=== PATIENT | female | born 1940 | race Caucasian/White ===

== ENCOUNTER 2016-05-16 08:15 | Outpatient (RCR) | payer MEDICARE, OTHER | END 2016-06-13 11:01 | disposition home or self-care (01) | LOC: PT 08:15 | PROVIDERS: ATTEND Family Medicine | DX: M81.0 Age-related osteoporosis without current pathological fracture (principal) | CPT/HCPCS: 97110; 97140; 97163; G8979; G8980; G8981; G8982; G8983 ==

== ENCOUNTER 2016-05-20 13:45 | Outpatient (RCR) | payer MEDICARE, OTHER | END 2016-05-27 16:32 | disposition home or self-care (01) | LOC: PT 13:45 | PROVIDERS: ATTEND Orthopaedic Surgery | DX: G89.29 Other chronic pain (principal); M25.562 Pain in left knee; R26.89 Other abnormalities of gait and mobility | CPT/HCPCS: 97110; 97162; G8978; G8979 ==

== ENCOUNTER 2016-06-28 13:49 | Outpatient (RCR) | payer MEDICARE, OTHER ==
[~2016-06-28 13:49] MED LIST: ASPI-345; ASPI-586 PO; ATEN1TAB3 PO; ATOR20TA PO; CHOL100092 PO; CYCL10TA45 PO; GEMF600T3 PO; HYDR-3702 PO; HYDR-3881 PO; OMEP20CA6 PO; ONDA8TAB9; ONDAN4ODT PO; POTA20TA12 PO; PRM25T PO; SIMV40TA PO; SIMV40TA2; SUCR1TAB29 PO; phenergan; zantac
--- NOTE | 2016-07-01 11:28 | PT/OT/ST INITIAL EVALUATION ---
Department of Health and Human Services Form Approved [facility] Care Financing Administration OMB No. [id number] PLAN OF CARE/ASSESSMENT FOR OUTPATIENT REHABILITATION (Complete for Initial Claims Only) 1. PATIENT'S NAME Leonila Jordan 2. ACC # [id number] [id number] 4. PROVIDER NO. [id number] 5. TYPE: SPT 6. PRIOR HOSPITALIZATION NA 7. PRIMARY DX Dysphagia 8. SECONDARY DX NA 9. ONSET DATE June 22, 2016 10. REFERRAL DATE June 24, 2016 11. SOC. DATE June 28, 2016 12. TIME OF EVAL 13:49 12. REFERRING PHYSICIAN Maira Herndon MD 13. CHARGES/UNITS NA 14. G CODES Currently [id number] 0% impaired Goal [id number] 0% impaired Discharge [id number] 0% impaired 15. PRIOR LEVEL OF FUNCTION; PERTINENT HISTORY (Prior therapy results, reason for referral.) S: Prior to therapy, the patient consented to today's evaluation and treatment. The patient is a 75-year-old female referred to speech therapy by Dr. Herndon to address dysphagia. Personal health rating: The patient rates her overall and general health as good. Mechanism of injury/Primary complaint: The patient does not have a mechanism of injury; however, her primary complaint is on June 22 when she had difficulty with brussel sprouts getting stuck in her esophagus. She states she had to dry heave for about 4 hours and finally was able to work the brussel sprouts out of her esophagus. Prior level of function: Prior to this she has not had any difficulties. Therapy History: She has never received therapy for this. Social history: She lives at home by herself. Aggravating factors: She has no aggravating factors. Diagnostic testing: She has no diagnostic testing. Past medical history: The patient states in 1989, she received an [place] ring, which was to help with acid reflux, which was placed in her esophagus. In 2012, she one episode of difficulty where something got stuck in her esophagus and her esophagus became swollen and Dr. Hartman had to remove part of this to relieve the pressure and she is afraid that this might be what is happening again. She also has a past medical history of rheumatoid arthritis, arthritis, stomach ulcers, osteoporosis, and fibromyalgia. Past surgical history: She has history of hysterectomy, hernias, gallbladder and appendix removal. Current medications: Listed in her chart. No medications should affect any therapy. 16. INITIAL ASSESSMENT/SAFETY PRECAUTIONS/MEDICAL COMPLICATIONS (Level of function at start of care. Be specific, use objective measures, list problems.) O: APPEARANCE AND OBSERVATION: Upon assessment the patient had her own teeth. She states she does not eat meat or beef unless it is ground up. She a cracker with good mastication and no labial or lingual weakness. She swallowed crackers and thin liquids with no outward signs or symptoms of aspiration and no pocketing. She had good labial and laryngeal elevation. The patient complains when she does have the difficulty that it is lower in her esophagus. It does not appear to be any oral or pharyngeal dysphagia, but could be a possible stricture or a difficulty with the [place] ring. Recommend an EGD to check the patient's esophagus for further difficulties, because no outward signs or symptoms of aspiration or pharyngeal residue. TODAY'S TREATMENT: No treatment provided today secondary to evaluation only and recommendation of EGD. 17. INITIAL POC: (Specify procedures, modalities, short and fpc goals) A: CONTRAINDICATIONS, PRECAUTIONS AND OBSTACLES TO DELIVERY OF CARE: None. INFORMED CONSENT: The diagnosis, prognosis, treatment plan, risks and expected outcomes were discussed with the patient and she agreed to today's established plan of care of evaluation only. She wants to have her esophagus checked out. P: Plan to discharge this patient at this time. 18. FREQUENCY One time only evaluation 19. DURATION NA 20. FUNCTIONAL LEVEL (End of claim period) 21. PHYSICIAN SIGNATURE ? ON FILE OR ENTER HERE: 22. DATE: I certify the need for these services furnished under this plan of care and if for partial hospitalization. 23. CERTIFICATION FROM THROUGH FORM [id number]
== END 2016-06-28 15:00 | disposition home or self-care (01) ==
LOC: ST 13:49
PROVIDERS: ATTEND Family Medicine
DX: R13.19 Other dysphagia (principal)
CPT/HCPCS: 92526; G8996; G8997; G8998

== ENCOUNTER → 2016-07-06 | Outpatient (CLI) | payer MEDICARE, OTHER ==
--- NOTE | 2016-07-06 13:06 | Diagnostic Imaging Report ---
EXAM: Ultrasound thyroid. DATE: July 06, 2016. COMPARISON: Thyroid ultrasound June 09, 2014. INDICATION: 75-year-old female, thyroid nodule. FINDINGS: Two-dimensional grayscale and color Doppler images were obtained of the thyroid. Right lobe of the thyroid: There is a heterogeneously hypoechoic nodule in the right lobe of the thyroid with some internal areas of hyperechogenicity which potentially could relate to internal microcalcifications. The nodule measures approximately 3.0 x 2.5 x 2.8 cm in size. There is internal blood flow. On comparison exams, there are more than one right-sided thyroid nodules previously measured. On today's exam, only one nodule is demonstrated. This thyroid nodule is increased in size compared to the previously noted largest thyroid nodules on prior exams. The right lobe of the thyroid measures 4.5 x 2.6 x 2.8 cm in size. Left lobe of the thyroid: The left lobe of the thyroid has uniform echotexture. There are no solid or cystic parenchymal distorting masses of the left thyroid. The left lobe of the thyroid measures 4.2 x 2.1 x 1.3 cm. Isthmus: The thyroid isthmus is unremarkable. The isthmus measures 0.2 cm. IMPRESSION: 1. Solid nodule in the right lobe of the thyroid with potential internal microcalcifications and demonstrated internal blood flow. This measures 3.0 x 2.5 x 2.8 cm in size. Recommend ultrasound-guided fine-needle aspiration for assessment of potential thyroid neoplasm. This nodule appears increased in size since June 09, 2014. The previously noted largest nodule in this region measured 2.8 x 1.9 x 2.2 cm on comparison exam. Dictated by: Dictated on workstation # [id number]
== END ==
LOC: RAD 12:20
PROVIDERS: ATTEND Family Medicine
DX: E04.2 Nontoxic multinodular goiter (principal)
CPT/HCPCS: 76536

== ENCOUNTER → 2016-07-13 | Outpatient (CLI) | payer MEDICARE, OTHER | LOC: LAB 11:34 | PROVIDERS: ATTEND Surgery | DX: E04.1 Nontoxic single thyroid nodule (principal) | CPT/HCPCS: 36415; 84443 ==